=== PATIENT | female | born 2000 | race Caucasian/White ===

== ENCOUNTER 2024-10-07 13:21 | Outpatient (AMB) | payer MEDICAID, SELFPAY ==
--- NOTE | 2024-10-07 13:23 | A.OFFPC_ITS ---
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 Transferring care from [facility] in [place], [place]. Medical records have not been requested and have not been received. Director Patient Financial Services Required: No Accompanied by: Self / Same As Patient Allergies acetaminophen [From TYLENOL] Allergy (Unknown, Verified 10/07/24 13:50) RASH kiwi [KIWI] Allergy (Unknown, Verified 10/07/24 13:50) UNKNOWN mushroom [MUSHROOM] Allergy (Unknown, Verified 10/07/24 13:50) UNKNOWN Medication List - Last Reconciled 10/07/24 by ANTHONY Singletary docusate sodium 100 mg PO DAILY escitalopram oxalate 20 mg PO BEDTIME olanzapine 10 mg PO BID prazosin 1 mg PO BEDTIME trazodone 75 mg PO Tobacco use date assessed: 10/07/24 Dental Screening Dental Screen Date: 10/07/24 Did you have a dental visit in the last 12 months?: No Did you have a dental problem in the last 6 months where you did not have access to dental care?: No Was dental information given to patient?: Patient has dentist 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 She does not remember the provider's name OBGYN:referral Past medical history:schizophrenia, anxiety, asthma Medications: Family HX: Schizophrenia and DM-mother, Problem: The patient is a 24-year-old female presenting with gastrointestinal symptoms, respiratory distress, and allergic symptoms. Over the past few days, she has experienced persistent coughing, runny nose, and vomiting which have intensified. She attributes these exacerbations to her gastroesophageal reflux disease, describing heartburn and vomiting of undeveloped food, indicating regurgitation of stomach acid. She denies fever but complains of generalized body aches and a sensation of respiratory distress. however; she endorses chest pain with breathing in and coughing. The patient acknowledges asthma but mentions she has not been using an inhaler. Additionally, she reports having had a significant allergic reaction requiring hospitalization, linked to food with potential cross-contamination. Her social history is pertinent for prolonged tobacco use, starting at age 10. There is a family history of diabetes from her mother. The patient has not visited primary care in a considerable duration But has been seeing a psychiatrist for management of her schizophrenia, depression and anxiety and insomnia. Patient reports constipation despite taking Colace 100 mg at bedtime. Reports that she strained on the toilet before until she vomited. Her social history is pertinent for prolonged tobacco use, starting at age 10. There is a family history of diabetes from her mother. The patient has not visited primary care in a considerable duration But has been seeing a psychiatrist for management of her schizophrenia, depression and anxiety and insomnia. [facility] Medical History Asthma Schizophrenia Diabetes Surgical History Hx of section Hx of tubal ligation Hx of appendectomy Family History Mother Breast cancer Diabetes Schizophrenia Family history of substance abuse FH: mental illness Son No problems noted. Son No problems noted. Son No problems noted. Daughter No problems noted. Social History Household Members: Significant Other Housing: Apartment Alcohol intake: current Alcohol intake frequency: holidays/special occasions only Patient Tobacco Use Status: Current everyday Tobacco user Tobacco use type: Cigarette Cigarettes Per Day: 3 Years Smoked: 14 e-Cigarette/Vaping Use: Never Used Substance Use Type: Marijuana service: No Current occupational status: unemployed Cognitive needs: No Hearing needs: No Vision needs: No Female Reproductive History Menstrual Age of Menarche: 6 Duration of menses: 3-5 days Questionnaire PHQ-9 Over the last 2 weeks, how often have you been bothered by any of the following problems? 1. Little interest or pleasure in doing things: several days 2. Feeling down, depressed, or hopeless: several days 3. Trouble falling or staying asleep, or sleeping too much: several days 4. Feeling tired or having little energy: more than half the days 5. Poor appetite or overeating: not at all 6. Feeling bad about yourself - or that you are a failure or have let yourself or your family down: several days 7. Trouble concentrating on things, such as reading the newspaper or watching television: not at all 8. Moving or speaking so slowly that other people could have noticed. Or the opposite - being so fidgety or restless that you have been moving around a lot more than usual: more than half the days 9. Thoughts that you would be better off or of hurting yourself in some way: not at all Total score: 8 Depression Screening Interpretation: Positive Depression Screening Done: Yes 28241 - PHQ-9 Billing: Yes Source: Developed by Drs. Gideon Fajardo, Vita Villa, Bakari Escalante and colleagues, with an educational yanni from [employer]. Thrive Questionnaire Date Thrive assessed: 10/07/24 I am a: Patient What is your living situation today?: I have a steady place to live Within the past 12 months, did the food you bought not last and you didn't have the money to get more?: Sometimes True Within the past 12 months, did you worry whether your food would run out before you got money to buy more?: Never true Do you have trouble paying for medicines?: No Do you have trouble getting transportation to medical appointments?: No Do you have trouble paying your heating and electricity bill?: No Do you have trouble taking care of your child, family member or friend?: No Do you have trouble with day-to-day activities such as bathing, preparing meals, shopping, managing finances, etc.?: No Are you currently unemployed and looking for a job?: Yes Are you interested in more education?: No Please select the resources that you would like help with: Job search/training Currently or been in a relationship where the following occur: No concerns reported THRIVE Score: 1 AUDIT C Alcohol Use Questionnaire (AUDIT-C) 1. How often do you have a drink containing alcohol?: Monthly or less 2. How many drinks containing alcohol do you have on a typical day when you are drinking?: 1 or 2 3. How often do you have six or more drinks on one occasion?: Less than monthly Total Score: 2 Score Reviewed/Action Taken: No MAGGIE-7 AMB Questionnaire MAGGIE-7 Date MAGGIE - 7 assessed: 10/07/24 Feeling nervous, anxious, or on edge: 2 = More than half the days Not being able to stop or control worryin = More than half the days Worrying too much about different things: 2 = More than half the days Trouble relaxin = Several days Being so restless that it is hard to sit still: 2 = More than half the days Becoming easily annoyed or irritable: 3 = Nearly every day Feeling afraid as if something awful might happen: 2 = More than half the days Total MAGGIE-7 score (0-4 normal; 5-9 mild; 10-14 moderate; 15-21 severe): 14 Source: Developed by Drs. Gideon Fajardo, Vita Villa, Bakari Escalante and colleagues, with an educational yanni from [employer]. MAGGIE-7 Assessment Billing MAGGIE-7 Assessment Tool: MAGGIE-7 Assessment 37932 ACT Questionnaire In the past 4 weeks, how much of the time did your asthma keep you from getting as much done at work, school or at home?: Most of the time During the past 4 weeks, how often have you had shortness of breath?: 3-6 times a week During the past 4 weeks, how often did your asthma symptoms wake you up at night or earlier than usual in the morning?: 4 or more nights a week During the past 4 weeks, how often have you had to use your rescue inhaler or nebulizer medication?: Not at all How would you rate your asthma control during the past 4 weeks?: Poorly controlled ACT Interpretation: Positive Score: 13 Review of Systems Const Denies headache(s) Eyes Denies loss of vision ENT Denies vertigo, Denies dizziness, Denies headache(s), Reports nasal congestion, Reports nasal discharge and Denies sore throat Card Reports chest pain, Denies leg edema and Denies lightheadedness Resp Denies cough, Denies hemoptysis and Denies wheezing GI Denies abdominal pain, Denies melena, Reports constipation, Reports heartburn, Denies diarrhea, Reports nausea and Reports vomiting Denies urinary frequency, Denies dysuria and Denies urinary urgency Musc Denies arthralgias, Denies joint swelling, Denies numbness and Denies tingling Neuro Denies Abnormal speech present, Denies behavioral changes, Denies vertigo, Denies dizziness, Denies headache(s), Denies loss of vision, Denies memory loss, Denies numbness and Denies tingling Psych Reports anxiety, Denies behavioral changes, Reports depression, Denies memory loss and Denies panic attacks Filiberto/Lymph Denies easy bleeding and Denies easy bruising Aller/Immun Denies wheezing Physical exam (Primary Care) Vital Signs: Last Vital Signs Temp 98.9 F 10/07/24 13:24 Pulse 78 10/07/24 13:24 Resp 18 10/07/24 13:24 BP 116/78 10/07/24 13:24 Pulse Ox 98 10/07/24 13:24 Oxygen Delivery Method Room Air 10/07/24 13:24 BMI result Body Mass Index 36.0 Tobacco/Smoking Status: Tobacco use Status Tobacco use date assessed 10/07/24 10/07/24 13:45 Patient Tobacco Use Status Current everyday Tobacco 10/07/24 13:45 Tobacco use type Cigarette 10/07/24 13:45 e-Cigarette/Vaping Use Never Used 10/07/24 13:45 PHQ-9: PHQ-9 Score PHQ-9: Total score 8 10/07/24 13:59 Depression Screening Interpretation: Positive Thrive Assessment: Date of Thrive Assessment Date Thrive assessed 10/07/24 10/07/24 13:45 Currently or been in a relationship where the following occur: No concerns reported Const General: healthy appearing, no acute distress, alert and awake Nutritional Appearance: well nourished Orientation/consciousness: oriented to person, oriented to place and oriented to time HENNY Ears: TM normal on the right and Abnormal EAC present cerumen impaction on the left General nose exam: Abnormal mucous membranes and turbinates present boggy and erythematous and Nasal discharge present purulent Eyes Conjunctivae: conjunctivae normal Sclerae: sclerae normal Pupils: Equal, round and reactive pupils present Neck Neck: Yes no lymphadenopathy and Yes no JVD Thyroid: Thyroid normal Carotids: no bruits Resp Effort & Inspection: normal respiratory effort and not tachypneic Auscultation: no crackles, no rales, no rhonchi and no wheezes Cardio Rate: regular rate Rhythm: regular rhythm Heart sounds: no murmurs and normal S1 and S2 GI Palpation (GI): Soft to palpation and nontender Auscultation: normal bowel sounds Skin General skin exam: no rashes or lesions noted and dry skin Neuro General: oriented to person, oriented to place and oriented to time Cranial nerves: Yes Equal, round and reactive pupils present Speech: No Abnormal speech present Gait exam (Neuro): Normal gait present Motor exam (neuro): no tremor noted Extrem Right upper extremity: full ROM Left upper extremity: full ROM Right lower extremity: full ROM; no edema Left lower extremity: full ROM; no edema Psych Mental Status: mental status grossly normal Speech and movement: Normal speech and movement present Affect: normal affect Attitude: cooperative Thought process: Normal thought process present Coding Level of Care Code New Pt Level 4 (03609) Diagnoses Schizophrenia, unspecified type F20.9 Schizophrenia type: unspecified Nausea and vomiting, unspecified vomiting type R11.2 Vomiting type: unspecified Nasal congestion R09.81 Shortness of breath R06.02 Chest pain on breathing R07.1 Chest pain type: chest pain on breathing Heartburn R12 Rhinosinusitis J32.9 Encounter for gynecological examination without abnormal finding Z01.419 Gynecological examination findings: abnormal findings ABSENT Asthma, unspecified asthma severity, unspecified whether complicated, unspecified whether persistent J45.909 Asthma severity: unspecified severity Asthma persistence: unspecified Asthma complication type: unspecified Left ear impacted cerumen H61.22 Constipation, unspecified constipation type K59.00 Constipation type: unspecified constipation type Additional Codes Asthma Control Questionnaire - ACT Interpretation: Positive ([id number]) MAGGIE-7 Assessment Billing - MAGGIE-7 Assessment Tool: MAGGIE-7 Assessment 43441 ([id number]) PHQ-9 - 75168 - PHQ-9 Billing: Yes ([id number]) Time Spent (min) 43 Assessment & Plan Assessment & Plan (1) Schizophrenia: Code(s): F20.9 - Schizophrenia, unspecified Category: Medical Qualifiers: Schizophrenia type: unspecified Qualified Code(s): F20.9 - Schizophrenia, unspecified (2) Nausea and vomiting: Code(s): R11.2 - Nausea with vomiting, unspecified Category: Medical Qualifiers: Vomiting type: unspecified Qualified Code(s): R11.2 - Nausea with vomiting, unspecified (3) Nasal congestion: Code(s): R09.81 - Nasal congestion Category: Medical (4) Shortness of breath: Code(s): R06.02 - Shortness of breath Category: Medical (5) Chest pain: Code(s): R07.9 - Chest pain, unspecified Category: Medical Qualifiers: Chest pain type: chest pain on breathing Qualified Code(s): R07.1 - Chest pain on breathing (6) Heartburn: Code(s): R12 - Heartburn Category: Medical (7) Rhinosinusitis: Code(s): J32.9 - Chronic sinusitis, unspecified Category: Medical (8) Routine gynecological examination: Code(s): Z01.419 - Encounter for gynecological examination (general) (routine) without abnormal findings Category: Medical Qualifiers: Gynecological examination findings: abnormal findings ABSENT Qualified Code(s): Z01.419 - Encounter for gynecological examination (general) (routine) without abnormal findings (9) Asthma: Code(s): J45.909 - Unspecified asthma, uncomplicated Category: Medical Qualifiers: Asthma severity: unspecified severity Asthma persistence: unspecified Asthma complication type: unspecified Qualified Code(s): J45.909 - Unspecified asthma, uncomplicated (10) Left ear impacted cerumen: Code(s): H61.22 - Impacted cerumen, left ear Category: Medical (11) Constipation: Code(s): K59.00 - Constipation, unspecified Category: Medical Qualifiers: Constipation type: unspecified constipation type Qualified Code(s): K59.00 - Constipation, unspecified Plan The patient was noted to have boggy and erythematous turbinates with yellowish drainage in bilateral nostrils, worse in the right. I suggested Flonase and antibiotics while using albuterol inhaler for SOB and oral antihistamines for allergic rhinitis relief. For her GERD symptoms, omeprazole was prescribed to be taken prior to meals. Zofran was recommended for nausea. To treat constipation, Senna was prescribed and collace was increased. The patient reports severe allergy, leading on hospital admission, an EpiPen prescription. Regarding sleep disturbances related to Seroquel cessation, I urged her to consult her p sychiatrist. Lastly, smoking cessation was heavily advised, with a follow-up arranged in six weeks, including fasting labs. Will also refer the patient to GI for further evaluation Patient was informed and verbally consented to the use of an ambient scribe for clinic note documentation during this visit. Orders: Orders Complete Blood Count Auto Diff Today Z00.00 - Encounter for general adult medical examination without abnormal findings Comprehensive [place]. Panel Fast Today Z00.00 - Encounter for general adult medical examination without abnormal findings Glucose Fasting Today Z00.00 - Encounter for general adult medical examination without abnormal findings Vitamin D 25-OH Total Today Z00.00 - Encounter for general adult medical examination without abnormal findings UA CC w/rflx Micro + Cult Today Z00.00 - Encounter for general adult medical examination without abnormal findings TSH reflex Free T4 Today Z00.00 - Encounter for general adult medical examination without abnormal findings Lipid Panel Today Z00.00 - Encounter for general adult medical examination without abnormal findings Referrals [employer] Referral Z01.419 - Encounter for gynecological examination (general) (routine) without abnormal findings Gastroenterology Referral K59.00 - Constipation, unspecified, R11.2 - Nausea with vomiting, unspecified, R12 - Heartburn Medications: New epinephrine (EpiPen 2-Ceasar) for 2 doses 0.3 mg (0.3 mL) IM Q10M PRN 2 ea 0RF anaphylaxis ondansetron 4 mg PO Q6H PRN 30 tabs 1RF nausea and vomiting prednisone 20 mg PO DAILY 5 days 5 tabs 0RF docusate sodium 200 mg PO BID sennosides (Senna Laxative) 17.2 mg (2 x 8.6 mg) PO BEDTIME PRN 60 tabs 0RF constipation amoxicillin-pot clavulanate 875-125 mg 1 tab PO BID 7 days 14 tabs 0RF J32.9 - Chronic sinusitis, unspecified albuterol sulfate 90 mcg/actuation 2 puffs inhalation Q4-6H PRN 8.5 grams 3RF shortness of breath or wheezing fluticasone propionate 50 mcg/actuation administer into each nostril 2 sprays intranasal BID 16 grams 0RF omeprazole 40 mg PO DAILY 90 caps 2RF carbamide peroxide 6.5% (Debrox) 5 drps otic (ears) Q12H 4 days 15 mL 0RF Patient Instructions: - Use Flonase nasal spray daily. - Take antibiotics as prescribed. - Start omeprazole each morning before eating. - Use Zofran as directed for nausea. - Use an inhaler for asthma symptoms as needed. - Take Senna for constipation relief. - Avoid smoking or reduce tobacco use. - Return for a follow-up visit in six weeks with fasting lab results. - Contact immediately if symptoms worsen or new concerns arise.
[2024-10-07 13:24] VITALS: BP 116/78; PULSE 78; RESP 18; TEMP 37.2; O2SAT 98; BMI 36.0
--- OUTSIDE RECORDS SUMMARY | 2024-10-07 15:45 | XMS_ITS | Clinical Summary ---
Author Organization [address] [facility] Address [address] [place] [address] Phone Care Team Providers Care Retention Specialist Name Role Phone Physician, No Pcp Primary Care Provider Unavaila ble Encounters Date Type Department Care Team Description 07/29/2024 11:02 AM EST - 07/29/2024 11:59 PM EST Hospital Encounter [facility] Non-Invasive Cardiology [address] [place] [address] Schizophrenia, unspecified (CMS/HCC V24, CMS/HCC V28) Discharge Disposition: Home or Self Care from Last 3 Months Social History Tobacco Use Types Packs/Day Years Used Date Smoking Tobacco: Never Assessed Comments Unknown Sex and Gender Information Value Date Recorded Sex Assigned at Female 07/29/2024 11:05 AM EST Legal Sex Female 4:35 AM EST Gender Identity Female 07/29/2024 11:05 AM EST Sexual Orientation Choose not to disclose 2024 11:05 AM EST Plan of Treatment Health Maintenance Due Date Last Done Comments Cervical Cancer Screening: Pap Smear 2019 Depression Screening 02/02/2024 HIV Screening 02/02/2024 Hepatitis C Screening 02/02/2024 Social Influencers of Health Screening 02/02/2024 COVID-19 Vaccine ( season) 2024 Influenza Vaccine (Season Ended) 2025 09/04/2020, 03/17/2019, 03/19/2018, Additional history exists Cholesterol Screening (Lipid Panel) 07/29/2029 07/29/2024 DTaP,Tdap,and Td Vaccines (10 - Td or Tdap) 02/19/2031 02/19/2021, 04/24/2019, 04/21/2015, Additional history exists HIB Vaccines Completed 04/14/2000, 02/07, 1998, Additional history exists Hepatitis B Vaccines Completed 04/14/2000, 1998, 1998 Pneumococcal Vaccine: Pediatrics (0 to 5 Years) and At-Risk Patients (6 to 64 Years) Completed 04/14/2000, 02/20/2000 IPV Vaccines Completed 07/27/2003, 11/1999, 1998, Additional history exists MMR Vaccines Completed 07/27/2003, 02/20/2000 Varicella Vaccines Completed 08/15/2008, 02/20/2000 Meningococcal ACWY Vaccine Aged Out 10/27/2009 N o longer eligible based on patient's age to complete this topic HPV Vaccines Completed 08/14/2012, 10/27/2009 Hepatitis A Vaccines Aged Out No long er eligible based on patient's age to complete this topic Meningococcal B Vaccine Aged Out No l onger eligible based on patient's age to complete this topic RSV Immunization Patients Under 20 months Aged Out No longer eligible based on patient's age to complete this topic Procedures Procedure Name Priority Date/Time Associated Diagnosis Comments CBC WITH AUTO DIFFERENTIAL Routine 07/29/2024 10:47 AM EST Encounter for long-term (current) use of high-risk medication HEMOGLOBIN A1C Routine 07/29/2024 10:47 AM EST Encounter for long-term (current) use of high-risk medication CBC AND DIFFERENTIAL Routine 07/29/2024 10:47 AM EST Encounter for long-term (current) use of high-risk medication THYROID STIMULATING HORMONE WITH REFLEX TO FREE T4 AND FREE T3 Routine 07/29/2024 10:47 AM EST Encounter for long-term (current) use of high-risk medication PHOSPHORUS Routine 07/29/2024 10:47 AM EST Encounter for long-term (current) use of high-risk medication BILIRUBIN, DIRECT Routine 07/29/2024 10: 47 AM EST Encounter for long-term (current) use of high-risk medication LIPID PANEL WITH REFLEX TO DIRECT LDL Routine 07/29/2024 10:47 AM EST Encounter for long-term (current) use of high-risk medication COMPREHENSIVE METABOLIC PANEL Routine 07/29/2024 10:47 AM EST Encounter for long-term (current) use of high-risk medication ECG 12-LEAD Routine 07/29/2024 10:45 AM EST Schizophrenia, unspecified (CMS/HCC V24, CMS/HCC V28) from Last 3 Months Results * Thyroid stimulating hormone with reflex to free t4 and free t3 (07/29/2024 10:47 AM EST) TSH 0.84 0.40 - 4.00 mcIU/mL LAB CHEMISTRY METHOD 07/29/2024 12:[address] [facility] Blood Venous blood specimen / Unknown Venipuncture / Unknown 07/29/2024 10:47 AM EST 07/29/2024 11:25 AM EST us Candy Ramos RAILROAD INSPECTOR LAB BLOOD ORDERABL ES Final Result [facility] [address] [place] [address], * Lipid panel with reflex to direct LDL (07/29/2024 10:47 AM EST) Cholesterol 164 0 - 200 mg/dL LAB CHEMISTRY METHOD 07/29/2024 12:[address] [facility] Triglycerides 93 0 - 150 mg/dL LAB CHEMISTRY METHOD 07/29/2024 12:[address] [facility] HDL 68 >=40 mg/dL LAB CHEMISTRY METHOD 07/29/2024 12:[address] [facility] LDL Calculated 77 0 - 100 mg/dL LAB CHEMISTRY METHOD 07/29/2024 12:[address] [facility] VLDL Cholesterol Kvng 18.6 mg/dL LAB CHEMISTRY METHOD 07/29/2024 12:[address] [facility] Non HDL Chol. (LDL+VLDL) 96 <145 mg/dL LAB CHEMISTRY METHOD 07/29/2024 12:[address] [facility] Chol/HDL Ratio 2.4 0.0 - 4.4 LAB CHEMISTRY METHOD 07/29/2024 12:[address] [facility] Blood Venous blood specimen / Unknown Venipuncture / Unknown 07/29/2024 10:47 AM EST 07/29/2024 11:25 AM EST us Candy Ramos NP LAB BLOOD ORDERABL ES Final Result [facility] [address] [place] [address], * CBC auto differential (07/29/2024 10:47 AM EST) WBC 8.2 4.8 - 10.8 K/mcL LAB HEMETOLOGY METHOD 07/29/2024 11:[address] [facility] RBC 4.10 3.80 - 4.80 M/mcL LAB HEMETOLOGY METHOD 07/29/2024 11:[address] [facility] Hemoglobin 11.7 11.5 - 16.0 g/dL LAB HEMETOLOGY METHOD 07/29/2024 11:[address] [facility] Hematocrit 36.0 35.0 - 47.0 % LAB HEMETOLOGY METHOD 07/29/2024 11:[address] [facility] MCV 88.5 79.0 - 98.0 FL LAB HEMETOLOGY METHOD 07/29/2024 11:[address] [facility] MCH 28.7 27.0 - 32.0 pcg LAB HEMETOLOGY METHOD 07/29/2024 11:[address] [facility] MCHC 32.5 32.0 - 37.0 g/dL LAB HEMETOLOGY METHOD 07/29/2024 11:[address] [facility] RDW 13.2 11.0 - 15.0 % LAB HEMETOLOGY METHOD 07/29/2024 11:[address] [facility] Platelets 354 130 - 400 K/mcL LAB HEMETOLOGY METHOD 07/29/2024 11:[address] [facility] MPV 9.0 7.0 - 11.0 FL LAB HEMETOLOGY METHOD 07/29/2024 11:[address] [facility] NRBC 0.0 <1.0 % LAB HEMETOLOGY METHOD 07/29/2024 11:[address] [facility] NRBC Absolute 0.00 <0.10 K/mcL LAB HEMETOLOGY METHOD 07/29/2024 11:[address] [facility] Neutrophils Relative 53.1 % LAB HEMETOLOGY METHOD 07/29/2024 11:[address] [facility] Lymphocytes Relative 37.0 % LAB HEMETOLOGY METHOD 07/29/2024 11:[address] [facility] Monocytes Relative 5.5 % LAB HEMETOLOGY METHOD 07/29/2024 11:[address] [facility] Eosinophils Relative 3.8 % LAB HEMETOLOGY METHOD 07/29/2024 11:[address] [facility] Basophils Relative 0.2 % LAB HEMETOLOGY METHOD 07/29/2024 11:[address] [facility] Immature Granulocytes Relative 0.4 % LAB HEMETOLOGY METHOD 07/29/2024 11:[address] [facility] Neutrophils Absolute 4.34 1.50 - 7.00 K/mcL LAB HEMETOLOGY METHOD 07/29/2024 11:[address] [facility] Lymphocytes Absolute 3.02 1.00 - 5.00 K/mcL LAB HEMETOLOGY METHOD 07/29/2024 11:40 AM EST [facility] Monocytes Absolute 0.45 0.20 - 1.00 K/[facility] LAB HEMETOLOGY METHOD 07/29/2024 11:[address] [facility] Eosinophils Absolute 0.31 0.00 - 0.50 K/[facility] LAB HEMETOLOGY METHOD 07/29/2024 11:40 AM EST [facility] Basophils Absolute 0.02 0.00 - 0.20 K/[facility] LAB HEMETOLOGY METHOD 07/29/2024 11:40 AM EST [facility] Immature Granulocytes Absolute 0.03 0.00 - 0.03 K/[facility] LAB HEMETOLOGY METHOD 07/29/2024 11:[address] [facility] Blood Venous blood specimen / Unknown Venipuncture / Unknown 07/29/2024 10:47 AM EST 07/29/2024 11:25 AM EST Candy Ramos RAILROAD INSPECTOR LAB BLOOD ORDERABL ES Final Result [facility] [address] [place] [address], [place] [phone] * Phosphorus (07/29/2024 10:47 AM EST) Phosphorus 2.7 2.5 - 4.5 mg/dL LAB CHEMISTRY METHOD 07/29/2024 12:07 PM EST [facility] Blood Venous blood specimen / Unknown Venipuncture / Unknown 07/29/2024 10:47 AM EST 07/29/2024 11:25 AM EST Candy Ramos RAILROAD INSPECTOR LAB BLOOD ORDERABL ES Final Result [facility] [address] [place] [address], [place] [phone] * Hemoglobin A1c (07/29/2024 10:47 AM EST) Pathologist [facility] Hemoglobin A1C 5.2 <6.5 % LAB CHEMISTRY METHOD 07/29/2024 3:02 PM EST [facility] Mean Bld Glu Estim. 103 mg/dL LAB CHEMISTRY METHOD 07/29/2024 3:02 PM EST [facility] Blood Venous blood specimen / Unknown Venipuncture / Unknown 07/29/2024 10:47 AM EST 07/29/2024 11:25 AM EST Candy Ramos NP LAB BLOOD ORDERABL ES Final Result [facility] [address] [place] [address], [place] [phone] * Bilirubin, direct (07/29/2024 10:47 AM EST) [facility] Bilirubin, Direct 0.1 0.0 - 0.3 mg/dL LAB CHEMISTRY METHOD 07/29/2024 12:03 PM EST [facility] Blood Venous blood specimen / Unknown Venipuncture / Unknown 07/29/2024 10:47 AM EST 07/29/2024 11:25 AM EST Candy Ramos NP LAB BLOOD ORDERABL ES Final Result [facility] [address] [place] [address], [place] [phone] * Comprehensive metabolic panel (07/29/2024 10:47 AM EST) [facility] Sodium 139 133 - 145 mmol/L LAB CHEMISTRY METHOD 07/29/2024 12:07 PM EST [facility] Potassium 4.0 3.5 - 5.5 mmol/L LAB CHEMISTRY METHOD 07/29/2024 12:[address] [facility] Chloride 108 96 - 110 mmol/L LAB CHEMISTRY METHOD 07/29/2024 12:[address] [facility] CO2 25 21 - 32 mmol/L LAB CHEMISTRY METHOD 07/29/2024 12:[address] [facility] Anion Gap 6 3 - 11 LAB CHEMISTRY METHOD 07/29/2024 12:[address] [facility] Glucose 79 70 - 100 mg/dL LAB CHEMISTRY METHOD 07/29/2024 12:[address] [facility] BUN 12 5 - 25 mg/dL LAB CHEMISTRY METHOD 07/29/2024 12:[address] [facility] Creatinine 0.58 0.50 - 1.10 mg/dL LAB CHEMISTRY METHOD 07/29/2024 12:[address] [facility] eGFR 128 >=60 mL/min/1. 73m2 LAB CHEMISTRY METHOD 07/29/2024 12:[address] [facility] Comment:Calculation based on the??Chronic Kidney Disease Epidemiology Collaboration (CKD-EPI) equation refit??without adjustment for race. BUN/Creatinine Ratio 20.7 LAB CHEMISTRY METHOD 07/29/2024 12:[address] [facility] Calcium 9.1 8.5 - 10.5 mg/dL LAB CHEMISTRY METHOD 07/29/2024 12:[address] [facility] AST (SGOT) 20 10 - 42 unit/L LAB CHEMISTRY METHOD 07/29/2024 12:[address] [facility] ALT (SGPT) 22 10 - 60 unit/L LAB CHEMISTRY METHOD 07/29/2024 12:[address] [facility] Alkaline Phosphatase 82 42 - 121 unit/L LAB CHEMISTRY METHOD 07/29/2024 12:[address] [facility] Total Protein 7.3 6.0 - 8.0 g/dL LAB CHEMISTRY METHOD 07/29/2024 12:07 PM EST [facility] Albumin 3.6 3.2 - 5.0 g/dL LAB CHEMISTRY METHOD 07/29/2024 12:07 PM EST [facility] Total Bilirubin 0.4 0.0 - 1.4 mg/dL LAB CHEMISTRY METHOD 07/29/2024 12:07 PM EST [facility] Blood Venous blood specimen / Unknown Venipuncture / Unknown 07/29/2024 10:47 AM EST 07/29/2024 11:25 AM EST Candy Ramos RAILROAD INSPECTOR LAB BLOOD ORDERABL ES Final Result [facility] [address] [place] [address], * ECG 12 lead (07/29/2024 10:45 AM EST) Ventricular Rate ECG 63 BPM GEMUSE Atrial Rate 63 BPM GEMUSE P-R Interval 130 ms GEMUSE QRS Duration 94 ms GEMUSE Q-T Interval 398 ms GEMUSE QTc 407 ms GEMUSE P Wave [place] 24 degrees GEMUSE R [place] 75 degrees GEMUSE T [place] 62 degrees GEMUSE ECG Interpretation Normal sinus rhythm with sinus arrhythmia Normal ECG No previous ECGs available Confirmed by MD Joel[id number] on 07/29/2024 9:54:38 PM GEMUSE 07/29/2024 10:4 5 AM EST 07/29/2024 9:54 PM EST Candy Ramos RAILROAD INSPECTOR ECG ORDERABLES Fi nal Result GEMUSE from Last 3 Months Insurance MEDICAID - [place] Care Teams Retention Specialist Relationship Specialty Start Date End Date Physician, No Pcp PCP - General 07/29/24
== END 2024-10-07 14:22 | disposition home or self-care (01) ==
LOC: HO.HMCH 13:22
DX: F20.9 Schizophrenia, unspecified (principal); R11.2 Nausea with vomiting, unspecified; R09.81 Nasal congestion; R06.02 Shortness of breath; R07.1 Chest pain on breathing; R12 Heartburn; J32.9 Chronic sinusitis, unspecified; Z01.419 Encounter for gynecological examination (general) (routine) without abnormal findings; J45.909 Unspecified asthma, uncomplicated; H61.22 Impacted cerumen, left ear; K59.00 Constipation, unspecified

== ENCOUNTER → 2024-10-07 13:21 | Outpatient (BNVA) | payer MEDICAID, SELFPAY | DX: F20.9 Schizophrenia, unspecified (principal); R11.2 Nausea with vomiting, unspecified; R09.81 Nasal congestion; R06.02 Shortness of breath; R07.1 Chest pain on breathing; R12 Heartburn; J32.9 Chronic sinusitis, unspecified; J45.909 Unspecified asthma, uncomplicated; H61.22 Impacted cerumen, left ear; K59.00 Constipation, unspecified; F17.210 Nicotine dependence, cigarettes, uncomplicated | CPT/HCPCS: 96127; 96160; 99202 ==